=== PATIENT | female | born 1960 | race Caucasian/White ===

== ENCOUNTER → 2018-06-12 | Outpatient (CLI) | payer OTHER ==
[2018-06-12 15:52] LABS: FREE T4 1.18 NG/DL (0.76-1.46)
[2018-06-14 14:14] LABS: TISSUE TRANSGLUTAMINASE IgA <2 U/mL (0-3)
== END ==
LOC: M LAB 15:00
DX: R11.0 Nausea (principal)
CPT/HCPCS: 84443

== ENCOUNTER → 2018-06-24 | Outpatient (CLI) | payer OTHER ==
[~2018-06-24] MED LIST: GASTROGRAFIN SOLUTION 30ML (Q9963) As Ordered; ISOVUE-370 76% 100ML VIAL (Q9967) As Ordered
== END ==
LOC: M RAD 16:21
DX: R63.4 Abnormal weight loss (principal)
CPT/HCPCS: Q9963

== ENCOUNTER 2018-08-02 11:52 | Day surgery (SDC) | payer OTHER ==
[2018-08-02] MEDS: NS 1,000 ML IV (06:30)
[~2018-08-02 11:52] MED LIST changes: -GASTROGRAFIN SOLUTION 30ML (Q9963) As Ordered; -ISOVUE-370 76% 100ML VIAL (Q9967) As Ordered; +LIDOCAINE 2% INJ 100 MG/5 ML SDV (FOR ANES.) As Ordered; +PROPOFOL 200 MG/20 ML VIAL As Ordered
[2018-08-02] MEDS ORDERED: fentaNYL 100 MCG/2 ML INJECTION (J3010) As Ordered (13:16)
== END 2018-08-02 14:10 | disposition home or self-care (01) ==
LOC: M OPP 11:52
DX: K63.5 Polyp of colon (principal); K64.8 Other hemorrhoids; R11.0 Nausea; R63.4 Abnormal weight loss; K21.9 Gastro-esophageal reflux disease without esophagitis; Z88.0 Allergy status to penicillin; Z88.2 Allergy status to sulfonamides; Z91.89 Other specified personal risk factors, not elsewhere classified; Z87.410 Personal history of cervical dysplasia; J30.2 Other seasonal allergic rhinitis
CPT/HCPCS: 45385

== ENCOUNTER 2020-06-21 15:52 | Emergency (ER) | payer OTHER ==
[~2020-06-21] VITALS: Ht 154.9 cm; Wt 67.1 kg
[~2020-06-21 15:52] MED LIST changes: +ALLERGY SHOTS IM; +FLON1SPR; -LIDOCAINE 2% INJ 100 MG/5 ML SDV (FOR ANES.) As Ordered; -PROPOFOL 200 MG/20 ML VIAL As Ordered
[2020-06-21] MEDS ORDERED: OMEP40CA97 PO (16:00)
[2020-06-21 18:13] LABS: BASO % 0.5 % (0.0-1.0); EOS # 0.1 10^3/uL (0.0-0.5); HEMATOCRIT 45.6 % (36.0-47.0); MEAN CORPUSCULAR HEMOGLOBIN 30.2 pg (27.0-33.0); MEAN CORPUSCULAR HGB CONC 32.9 g/dl (32.0-36.5); MEAN CORPUSCULAR VOLUME 91.9 fl (80.0-96.0); MONO # 0.5 10^3/uL (0.0-0.8); MONO % 8.6 % (0.0-5.0); NEUTROPHILS # 3.4 10^3/uL (1.5-8.5); NEUTROPHILS % 56.6 % (36.0-66.0); PLATELET COUNT, AUTOMATED 235 10^3/uL (150-450); RED BLOOD COUNT 4.96 10^6/uL (4.00-5.40); WHITE BLOOD COUNT 6.1 10^3/uL (4.0-10.0)
[2020-06-21] MEDS ORDERED: GI COCKTAIL 50ML BTL(HYOSCYAMINE/MAALOX/LIDOCAINE VISCOUS)(1:3:1) PO ONE (18:15)
[2020-06-21 18:49] LABS: ALBUMIN 4.3 GM/DL (3.2-5.2); ALT/SGPT 16 U/L (12-78); AMYLASE 55 U/L (25-115); BILIRUBIN,DIRECT 0.2 MG/DL (0.0-0.2); BILIRUBIN,TOTAL 0.5 MG/DL (0.2-1.0); BLOOD UREA NITROGEN 7 MG/DL (7-18); CALCIUM LEVEL 9.6 MG/DL (8.5-10.1); CARBON DIOXIDE LEVEL 28 MEQ/L (21-32); CHLORIDE LEVEL 104 MEQ/L (98-107); CREATININE FOR GFR 0.69 MG/DL (0.55-1.30); GLOMERULAR FILTRATION RATE > 60.0 (>51); GLUCOSE, FASTING 86 MG/DL (70-100); LIPASE 75 U/L (73-393); POTASSIUM SERUM 3.9 MEQ/L (3.5-5.1); SODIUM LEVEL 138 MEQ/L (136-145); TOTAL PROTEIN 7.6 GM/DL (6.4-8.2)
--- NOTE | 2020-06-21 19:18 | REPVR ---
PROCEDURE INFORMATION: Exam: CT Abdomen And Pelvis Without Contrast Exam date and time: 06/21/2020 6:03 PM Age: 59 years old Clinical indication: Abdominal pain; Additional info: Abd pain TECHNIQUE: Imaging protocol: Computed tomography of the abdomen and pelvis without contrast. Radiation optimization: All CT scans at this facility use at least one of these dose optimization techniques: automated exposure control; mA and/or kV adjustment per patient size (includes targeted exams where dose is matched to clinical indication); or iterative reconstruction. COMPARISON: CT ABD PELVIS WITH CONTRAST 06/24/2018 6:11 PM FINDINGS: Lungs: A small linear area of pleuroparenchymal scarring is again seen in the basal segment posterior left lower lobe. Liver: Normal. No mass. Gallbladder and bile ducts: Normal. No calcified stones. No ductal dilation. Pancreas: Normal. No ductal dilation. Spleen: Normal. No splenomegaly. Adrenals: Normal. No mass. Kidneys and ureters: Normal. No hydronephrosis. Stomach and bowel: Unremarkable. No obstruction. No mucosal thickening. Appendix: Interval increase in number of small appendicoliths within the otherwise normal appendix in the right side pelvis, seen on images 101 through 106 of series 201. Intraperitoneal space: No acute abnormality identified in the abdomen or pelvis. No major interval change since the previous CT abdomen and pelvis study from 06/24/2018. Vasculature: Unremarkable. No abdominal aortic aneurysm. Lymph nodes: Unremarkable. No enlarged lymph nodes. Bladder: Unremarkable as visualized. Reproductive: Unremarkable as visualized. Bones/joints: Mild levoscoliosis of the lumbar spine, apex at L3/L4. Soft tissues: Unremarkable. IMPRESSION: 1. No acute abnormality identified in the abdomen or pelvis. No major interval change since the previous CT abdomen and pelvis study from 06/24/2018. 2. A small linear area of pleuroparenchymal scarring is again seen in the basal segment posterior left lower lobe. 3. Interval increase in number of small appendicoliths within the otherwise normal appendix in the right side pelvis, since the previous CT study, seen on images 101 through 106 of series 201. 4. Mild levoscoliosis of the lumbar spine, apex at L3/L4. Electronically signed by: Cayden Lopes On 06/21/2020 19:18:13 PM
[2020-06-21 19:54] VITALS: BP 131/70
== END 2020-06-21 19:55 | disposition home or self-care (01) ==
LOC: M ED 15:52
DX: R10.9 Unspecified abdominal pain (principal); R11.0 Nausea; K21.9 Gastro-esophageal reflux disease without esophagitis; Z79.899 Other long term (current) drug therapy; Z88.0 Allergy status to penicillin; Z88.1 Allergy status to other antibiotic agents; Z88.2 Allergy status to sulfonamides

== ENCOUNTER → 2020-07-12 | Outpatient (CLI) | payer OTHER ==
[~2020-07-12] MED LIST changes: +OMEP40CA97 PO
--- NOTE | 2020-07-14 18:31 | REP ---
ASSESSMENT: VERENA, SMA and celiac arteries. INDICATION: EPIGASTRIC PAIN repeat dictation. COMPARISON: Comparison CT study of the abdomen and pelvis June 21, 2020.. TECHNIQUE: Baseline and postprandial Doppler sonography of the SMA proximal and mid region is performed. Baseline Doppler assessment the celiac axis is performed. Meal challenge was administered. FINDINGS: A normal response to meal challenge was observed in sequential post prandial velocities in the proximal and mid SMA., Peak systolic velocities are quite high but no definite stenosis is seen. Peak systolic flow velocity in the celiac axis at baseline is normal, 153 centimeters/second, EDV 32 cm/S. Velocity chart: Baseline: Proximal SMA PSV 104 cm/S, EDV 15 cm/S Mid SMA PSV 157 cm/S, EDV 16 cm/S 10 minutes post meal challenge: Proximal SMA PSV 169, EDV 41 cm/S Mid SMA PSV 190, EDV 51 cm/S 20 minutes post meal challenge: Proximal SMA PSV 263, EDV 80 cm/S Mid SMA PSV to 69, EDV 75 cm/S 30 minutes post meal challenge: Proximal SMA PSV 43, EDV 102 cm/S Mid SMA PSV 356, EDV 97 cm/S 40 minutes post meal challenge: Proximal SMA PSV 529, EDV 162 cm/S Mid SMA PSV 391, EDV 109 cm/S 50 minutes post meal challenge: Proximal SMA PSV 484, EDV 90 cm/S Mid SMA PSV 289 EDV 72 cm/S IMPRESSION: Normal arterial velocity response in the proximal and mid SMA to meal challenge. High peak systolic velocities but no stenosis identified. <Electronically signed by Julio Perkins > 07/14/20 1891
== END ==
LOC: M RAD 09:18
PROVIDERS: ATTEND Specialist
DX: R10.13 Epigastric pain (principal)

== ENCOUNTER → 2022-11-08 | Outpatient (REF) | payer OTHER ==
[~2022-11-08] MED LIST changes: +OMEP40CA4 PO; -OMEP40CA97 PO
== END ==
LOC: M SFHCWAGY 13:05
PROVIDERS: ATTEND Nurse Practitioner Family
DX: Z12.4 Encounter for screening for malignant neoplasm of cervix (principal)
CPT/HCPCS: 87624; G0123

== ENCOUNTER → 2022-11-08 | Outpatient (CLI) | payer OTHER | LOC: M WHC 09:48 | PROVIDERS: ATTEND Nurse Practitioner Family | DX: Z12.31 Encounter for screening mammogram for malignant neoplasm of breast (principal) ==

== ENCOUNTER → 2023-11-14 | Outpatient (CLI) | payer OTHER | LOC: M WHC 14:10 | PROVIDERS: ATTEND Nurse Practitioner Family | DX: Z12.31 Encounter for screening mammogram for malignant neoplasm of breast (principal) ==

== ENCOUNTER → 2024-11-19 | Outpatient (CLI) | payer OTHER | LOC: M WHC 08:24 | PROVIDERS: ATTEND Nurse Practitioner Family | DX: Z12.31 Encounter for screening mammogram for malignant neoplasm of breast (principal) ==

== ENCOUNTER → 2024-11-19 | Outpatient (REF) | payer OTHER | LOC: M SFHCWAGY 13:25 | PROVIDERS: ATTEND Nurse Practitioner Family | DX: Z12.4 Encounter for screening for malignant neoplasm of cervix (principal); Z11.51 Encounter for screening for human papillomavirus (HPV) ==